=== PATIENT | male | born 1990 | race Caucasian/White ===

== ENCOUNTER 2024-02-10 14:30 | Outpatient (CLI) | payer OTHER, SELFPAY ==
--- OUTSIDE RECORDS SUMMARY | 2024-02-10 14:33 | XMS_ITS | Encounter Summary ---
Author Organization [employer] Address [address] [place] [address] Care Team Providers Care Balance And Hairspring Assembler Name Role Phone Unassigned, Provider Primary Care Provider Unava ilable Reason for Visit * Reason Comments Follow-up, NOS Encounter Details Date Type Department Care Team (Late st Contact Info) Description 11/26/2023 2:30 PM CDT Office Visit [facility] [address] [address] [address] [place] [phone] [place] [address] [place] [address] Sterilization consult (Primary Dx) Social History Tobacco Use Types Packs/Day Years Used Date Smoking Tobacco: Never Smokeless Tobacco: Former Chew Quit: 03/10/2015 Alcohol Use Standard Drinks/Week Comments Yes 0 (1 standard drink = 0.6 oz pur e alcohol) 3 drinks a week Sex and Gender Information Value Date Recorded Sex Assigned at Not on file Gender Identity Not on file Sexual Orientation Not on file documented as of this encounter Patient Instructions * Patient Instructions* Haylie Vargas MD - 11/26/2023 2:30 PM CDT Summary For pain: 600-800 mg Ibuprofen every 8 hours Tylenol 1,000 mg every 8 hours. (4,000 mg limit in 24 hours.) Alternate Tylenol/Advil, so noon take one, 4 p.m. take the other. Call: If you want Oxycodone, we could do something like 6 pills daily for 6 nights. If you can do without, fine. If pain is getting any worse, redness spreading, give a call and I would add antibiotics. If you have problems during regular hours or have questions you can reach Dr. Vargas's nurse line: . For emergencies (fevers, shaking chills, chest pain, difficulty breathing, severe weakness or any significant concerns - you should go to the ER). documented in this encounter Progress Notes * Haylie Vargas MD - 11/26/2023 2:30 PM CDT Clinic Note CC: Post vas pain HPI: 33 year old one week s/p vasectomy with ongoing right sided pain radiating to right abdomen. No drainage. No overlying erythema. Left side feels normal. 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 OBJECTIVE: Appearance: well groomed Psych: judgement and insight intact Lungs: no respiratory distress : Right tender cystic area at proximal vas without fluctuance. No overlying redness. Very tender to palpation ASSESSMENT/PLAN: 1. Right testicle pain after vasectomy. Likely some deep bruising around the site irritating the nerves in the area. - Described how to use Tylenol/Advil, ongoing ice and supportive underwear - Can call for small supply of Oxycodone if needed - One week re-check. He can cancel if improved Please see the After Visit Summary for counseling, advice, and precautions that I gave the patient during today's visit. Haylie Vargas MD documented in this encounter Plan of Treatment Not on file documented as of this encounter Visit Diagnoses Diagnosis Sterilization consult- Primary Other general counseling and advice for contraceptive management documented in this encounter Care Teams Balance And Hairspring Assembler Relationship Specialty Start Date End Date Unassigned, Provider [address] [place] [address] PCP - General 12/12/99 documented as of this encounter
--- OUTSIDE RECORDS SUMMARY | 2024-02-10 14:33 | XMS_ITS | Encounter Summary ---
Author Organization [employer] Address [address] [place] [address] Care Team Providers Care Lamp Stack Developer Name Role Phone Unassigned, Provider Primary Care Provider Unava ilable Reason for Visit * Reason Comments Questions Encounter Details Date Type Department Care Team (Late st Contact Info) Description 11/17/2023 Telephone [facility] - Urology [address] [place], [place] [id number] [place] [address] [place] [address] Questions Social History Tobacco Use Types Packs/Day Years [...] on file documented as of this encounter Nursing Notes * Florinda Stevens RN - 11/17/2023 10:07 AM CDT Verbal prescription called into pharmacy. * Florinda Stevens RN - 11/17/2023 9:34 AM CDT Mata is scheduled for a vasectomy on Friday11/19/23. His prescription for valium had , so he was not able to pick it up. He needs a new prescription sent to the pharmacy in time for him to pick it up and bring with him to the procedure appointment. Will route to provider to sign new valium prescription. Correct pharmacy selected. documented in this encounter Plan of Treatment Not on file documented as of this encounter Visit Diagnoses Not on filedocumented in this encounter Care Teams Lamp Stack Developer Relationship Specialty Start Date End Date Unassigned, Provider [address] [place] [address] PCP - General 12/12/99 documented as of this encounter
--- OUTSIDE RECORDS SUMMARY | 2024-02-10 14:33 | XMS_ITS | Clinical Summary ---
Author Organization [facility] Address [address] [place] [address] Care Team Providers Care Warehouse Picker Name Role Phone Unassigned, Provider Primary Care Provider Unava ilable Source Comments You are receiving this document as you are listed as the primary care provider,follow-up provider, or the patient has been referred to you for consultation.This is in compliance with the Medicare andMedicaid EHR Incentive Program,which states Providers who transition their patient to another setting of careor provider of care or refers their patient to another provider of care shouldprovide summary care record for each transition of care or referral. [facility] Allergies Active Allergy Reactions Criticality Noted Date Comments Sulfa Antibiotics 09/17/2010 Medications No known medications Encounters Date Type Department Care Team Description 11/26/2023 2:30 PM CDT Office Visit [facility] [address] [address] [address] [place] [phone] Haylie Vargas MD Sterilization consult (Primary Dx) 11/25/2023 Telephone [facility] [address] [address] [address] [place] [phone] Haylie Vargas MD Questions 11/19/2023 10:00 AM CDT Office Visit [facility] [address] [address] [address] [place] [phone] Haylie Vargas MD Encounter for sterilization (Primary Dx) 11/17/2023 Telephone [facility] - Urology [address] [place] [address] Haylie Vargas MD Questions from Last 3 Months Social History Tobacco Use Types Packs/Day Years Used Date Smoking Tobacco: Never Smokeless Tobacco: Former Chew Quit: 03/10/2015 Alcohol Use Standard Drinks/Week Comments Yes 0 (1 standard drink = 0.6 oz pur e alcohol) 3 drinks a week Sex and Gender Information Value Date Recorded Sex Assigned at Not on file Gender Identity Not on file Sexual Orientation Not on file Last Filed Vital Signs Vital Sign Reading Time Taken Comments Blood Pressure 123/74 09/17/2010 7:09 PM CDT Pulse 71 09/17/2010 7:09 PM CDT Temperature 36.5 C (97.7 F) 09/17/2010 7:09 PM CDT Respiratory Rate 17 11/05/2021 8:37 AM CDT Oxygen Saturation - - Inhaled Oxygen Concentration - - Weight 95.3 kg (210 lb) 11/05/2021 8:37 AM CDT Height 195.6 cm (6' 5) 11/05/2021 8:37 AM CDT Body Mass Index 24.9 11/05/2021 8:37 AM CDT Plan of Treatment Health Maintenance Due Date Last Done Comments Hep C Screening (Preventive Services) 1992 HIV Screening (Preventive Services) 2008 Adult Preventive Visit 02/21/2010 HepB (1) 02/21/2011 HepA (2 of 2 - 2-dose series) 05/08/2011 11/05/2010 COVID-19 Vaccine ( season) 2023 07/26/2020, 06/28/2020 Influenza (#1) 2023 DTaP/Tdap/Td (9 - Tdap) 08/16/2029 08/17/19 20, 10/26/2012, 11/06/2004, Additional history exists Zoster/Shingles (1 of 2) 02/21/2042 Hib Completed 11/26/1994, 03/10, 12/25/1993, Additional history exists IPV (Polio) Completed 09/04/1998, 03/10, 12/25/1993, Additional history exists MCV4 Aged Out 06/28/2004 No longer eligi ble based on patient's age to complete this topic HPV Vaccine Aged Out No longer eligi ble based on patient's age to complete this topic RSV Aged Out No longer eligi ble based on patient's age to complete this topic Pneumococcal Aged Out No longer eligi ble based on patient's age to complete this topic Care Teams Warehouse Picker Relationship Specialty Start Date End Date Unassigned, Provider [address] [place] [address] PCP - General 12/12/99
--- OUTSIDE RECORDS SUMMARY | 2024-02-10 14:33 | XMS_ITS | Encounter Summary ---
Author Organization [employer] Address [address] [place] [address] Care Team Providers Care Vat Washer Name Role Phone Unassigned, Provider Primary Care Provider Unava ilable Reason for Visit * Reason Comments VASECTOMY,PERFORMED Encounter Details Date Type Department Care Team (Late st Contact Info) Description 11/19/2023 10:00 AM CDT Office Visit [facility] [address] [address] [address] [place] [phone] [place] [address] [place] [address] Encounter for sterilization (Primary Dx) Social History Tobacco Use Types [...] on file documented as of this encounter Progress Notes * Haylie Vargas MD - 11/19/2023 10:00 AM CDT Urology Procedure Note 11/25/23 Procedure: Vasectomy Preop: Desires sterility Post: Desires sterility Anesthesia: Local Surgeon: Haylie Vargas The procedure of bilateral vasectomy was thoroughly discussed with the patient at the vasectomy consult. The patient returns today for the procedure. I was able to communicate with the patient and his identification was verified. The reason for the visit was confirmed. The informed consent was obtained, and granted for the procedure. The patient reiterates that he desires irreversible sterilization. He understands the risks and benefits of the procedure. PROCEDURE: The patient was sterilely prepped. The right vas deferens palpated through the skin. 2% lidocaine mixed with 0.5% Marcaine used as local anesthetic. A scalpel incision was made. The vas deferens was brought out of the scrotum and was cleared of the surrounding tissues. The vas was cut, both mucosaledges internally and externally cauterized and clipped on the abdominal end. The testicular end wasclosed in surrounding tissue with 4-0 Vicryl. The procedure was then was repeated on the left side using a different opening. The incisions were then closed using 3-0 chromic. Excellent hemostasis was achieved. Routine instructions were given to the patient verbally as well as written in a preprinted printed instruction sheet. Haylie Vargas MD documented in this encounter Plan of Treatment Scheduled Orders Name Type Priority Associated Diagnoses Orde r Schedule SEMEN - POST VAS (3 month follow up) Lab Routine Encounter for sterilization Expected: 01/20/2024 (Approximate), Expires: 08/21/2024 documented as of this encounter Visit Diagnoses Diagnosis Encounter for sterilization- Primary Sterilization documented in this encounter Care Teams Vat Washer Relationship Specialty Start Date End Date Unassigned, Provider [address] [place] [address] PCP - General 12/12/99 documented as of this encounter
--- OUTSIDE RECORDS SUMMARY | 2024-02-10 14:33 | XMS_ITS | Encounter Summary ---
Author Organization [employer] Address [address] [place] [address] Care Team Providers Care Office Administration Instructor Name Role Phone Unassigned, Provider Primary Care Provider Unava ilable Reason for Visit * Reason Comments Questions Encounter Details Date Type Department Care Team (Late st Contact Info) Description 11/25/2023 [facility]phone [facility] [address] [address] [address] [place] [phone] [place] [address] [place] [address] Questions Social History Tobacco Use Types [...] as of this encounter Nursing Notes * Yecenia Vu RN - 11/25/2023 11:15 AM CDT Mata calls stating he is having ongoing pain in low right abdomen and right testicle. 6 days postvasectomy. Denies swelling. Has tried ice, ibuprofen. Pressure seems to help. Is still wearing compression shorts. Has been taking it easy; denies doing anything more strenuous than walking around his house as part of every day living. Clinic appointment made for pt. LVM for pt to call us back if any signs of infection, like incision red/hot to the touch, fever, drainage. documented in this encounter Plan of Treatment Not on file documented as of this encounter Visit Diagnoses Not on filedocumented in this encounter Care Teams Office Administration Instructor Relationship Specialty Start Date End Date Unassigned, Provider [address] [place] [address] PCP - General 12/12/99 documented as of this encounter
== END 2024-02-10 14:31 | disposition home or self-care (01) ==
PROVIDERS: PCP Family Medicine; Visit Provider Family Medicine
DX: R53.83 Other fatigue (principal); Z13.6 Encounter for screening for cardiovascular disorders
CPT/HCPCS: 80053; 80061

== ENCOUNTER 2024-03-31 11:44 | Outpatient (CLI) | payer OTHER, SELFPAY ==
--- NOTE | 2024-03-31 13:00 | CRLHL7_ITS ---
For Patients: As a result of the Century Cures Act, medical imaging exams and procedure reports are released immediately into your electronic medical record. You may view this report before your referring provider. If you have questions, please contact your health care provider. Indication: Chronic sinusitis. Technique: Noncontrast axial CT of the paranasal sinuses with coronal reformats are provided. No comparisons. Findings: The visualized paranasal sinuses are clear. The ostiomeatal complexes are patent bilaterally. The visualized intraorbital contents appear within normal limits. Impression: Unremarkable CT of the paranasal sinuses. Please note that all CT scans at this facility use dose modulation, iterative reconstruction, and/or weight-based dosing when appropriate to reduce radiation dose to as low as reasonably achievable. Dictated by Ab Auguste MD @ 03/31/2024 2:17:10 PM (Electronically Signed)
== END 2024-03-31 11:45 | disposition home or self-care (01) ==
LOC: CT 11:46
PROVIDERS: PCP Family Medicine; Visit Provider Otolaryngology
DX: J32.9 Chronic sinusitis, unspecified (principal)
CPT/HCPCS: 70486